=== PATIENT | male | born 1950 | race Caucasian/White ===

== ENCOUNTER 2018-03-08 07:53 | Emergency (ER) | payer MEDICARE ==
[2016-09-22 23:57] VITALS: BMI 36.2
[~2018-03-08 07:53] MED LIST: BRILINTA90 MG PO; GLUCOPHAGE500 MG PO; LOZOL 2.5 MG T2.5 MG PO; ZOCOR20 MG PO
== END 2018-03-08 09:15 | disposition home or self-care (01) ==
LOC: D.ER 07:53
DX: M54.2 Cervicalgia (principal); I10 Essential (primary) hypertension; E11.9 Type 2 diabetes mellitus without complications